=== PATIENT | male | born 1985 | race Caucasian/White ===

== ENCOUNTER 2022-06-11 16:40 | Emergency (ER) | payer BC, OTHER ==
[2022-06-11] MEDS ORDERED: Ketorolac Tromethamine 30 MG/ML VIAL ONE (17:21)
== END 2022-06-11 17:47 | disposition home or self-care (01) ==
LOC: CSHERS 16:40
DX: M25.572 Pain in left ankle and joints of left foot (principal)
CPT/HCPCS: 96372; J1885